=== PATIENT | female | born 1980 | race African-American/Black ===

== ENCOUNTER 2018-08-16 18:13 | Emergency (ER) | payer SELFPAY ==
[~2018-08-16] VITALS: Ht 180.3 cm; Wt 79.4 kg
[2018-08-16 18:19] VITALS: BP 141/92
[2018-08-16] MEDS: LIDOCAINE W/ EPINEPHRINE 2% INJ 20ML VIAL IJ ONE (20:05)
[2018-08-16] MEDS: cefTRIAXone SOD 1,000 MG VL IM ONE (20:05)
== END 2018-08-16 21:00 | disposition home or self-care (01) ==
LOC: ER 18:13
DX: N76.4 Abscess of vulva (principal)
CPT/HCPCS: 56405 ×2; 96372 ×2; 99284; J0696 ×2

== ENCOUNTER 2018-09-06 12:50 | Emergency (ER) | payer SELFPAY ==
[~2018-09-06] VITALS: Ht 180.3 cm; Wt 77.1 kg
[2018-09-06] MEDS ORDERED: HYDROcodone-ACET 10/325MG TAB PO ONE (14:45)
[2018-09-06] MEDS ORDERED: MORPHINE SULFATE 10 MG/ML INJ 1ML SDV IV ONE (15:00)
[2018-09-06] MEDS ORDERED: cefTRIAXone 1GM/50ML D5W 50 ML IV ONE (15:15)
[2018-09-06 15:47] VITALS: BP 118/74
== END 2018-09-06 15:51 | disposition home or self-care (01) ==
LOC: ER 12:52
DX: N76.4 Abscess of vulva (principal)
CPT/HCPCS: 56405; 87205; 96365; 96375; 99284; J0696; J2270

== ENCOUNTER 2018-10-24 19:06 | Emergency (ER) | payer SELFPAY ==
[~2018-10-24] VITALS: Ht 182.9 cm; Wt 74.8 kg
[2018-10-24 20:08] VITALS: BP 114/90
[2018-10-24] MEDS ORDERED: cefTRIAXone SOD 1,000 MG VL IM ONE (21:30)
[2018-10-24] MEDS ORDERED: ONDANSETRON ODT 4 MG TAB PO ONE (21:30)
[2018-10-24] MEDS ORDERED: PHENAZOPYRIDINE HCL 100 MG TAB PO ONE (21:30)
[2018-10-24] MEDS ORDERED: LACTULOSE 20Gm/30ML SOLN PO ONE (22:00)
== END 2018-10-24 22:45 | disposition home or self-care (01) ==
LOC: ER 19:08
DX: K59.00 Constipation, unspecified (principal); R14.0 Abdominal distension (gaseous); R11.0 Nausea; N39.0 Urinary tract infection, site not specified
CPT/HCPCS: 74018; 81002; 81025; 96372; 99284; J0696; Q0162